=== PATIENT | female | born 1940 | race Caucasian/White ===

== ENCOUNTER 2021-05-04 09:59 | Outpatient (CLI) | payer MEDICARE, BC | END 2021-05-04 10:00 | disposition home or self-care (01) | LOC: CSHCP 09:59 | PROVIDERS: ATTEND Internal Medicine Pulmonary Disease | DX: R09.02 Hypoxemia (principal) | CPT/HCPCS: 94060; 94726; 94729; 94760 ==

== ENCOUNTER 2022-08-23 19:15 | Emergency (ER) | payer MEDICARE, BC ==
[2022-08-23] MEDS ORDERED: Acetaminophen 500 MG TAB ONE (20:25)
[2022-08-23 20:54] LABS: #Basophils 0.1 10x3/uL (0.0-0.2); #Eosinphils 0.3 10x3/uL (0.0-0.5); #Monocytes 0.6 10x3/uL (0.0-1.1); #Neutrophils 3.7 10x3/uL (1.5-8.4); %Eosinophils 3.5 % (0.0-6.0); %Lymphocytes 34.3 % (18.0-47.0); %Neutrophils 51.9 % (40.0-75.0); Mean Corpuscular HGB CONC 32.1 g/dL (32.0-36.0); Mean Corpuscular Hemoglobin 28.6 pg (27.0-33.0); Mean Platelet Volume 9.4 fl (7.4-10.4); Platelet Count 208 10x3/uL (150-450); RBC Distribution Width 12.9 % (11.5-14.5); White Blood Cell (WBC) Count 7.1 10x3/uL (3.5-10.5)
[2022-08-23 20:56] LABS: Anion Gap 17 mmol/L (10-20); BUN (Urea Nitrogen) 22 mg/dL (9.8-20.1); CRP (Inflammatory) Less than 0.50 mg/dL (= or < 0.5); Calc. Creatinine Clearance 0 mL/min (70-130); Calcium 9.6 mg/dL (7.8-10.44); Carbon Dioxide 26 mmol/L (23-31); Chloride 103 mmol/L (98-107); Estimated GFR 46; Glucose 117 mg/dL (83-110); Potassium 3.8 mmol/L (3.5-5.1); Sodium 142 mmol/L (136-145)
== END 2022-08-23 21:46 | disposition home or self-care (01) ==
LOC: CSHERS 19:15
DX: R51.9 Headache, unspecified (principal); I11.0 Hypertensive heart disease with heart failure; I50.9 Heart failure, unspecified; E78.5 Hyperlipidemia, unspecified; E11.9 Type 2 diabetes mellitus without complications; Z79.899 Other long term (current) drug therapy; Z79.4 Long term (current) use of insulin
CPT/HCPCS: 70450; 80048; 85025; 85652; 86140